=== PATIENT | male | born 1995 | race Two or more races ===

== ENCOUNTER 2021-12-03 17:29 | Emergency (ER) | payer OTHER ==
[~2021-12-03] VITALS: Ht 165.1 cm; Wt 79.4 kg
[2021-12-03] MEDS ORDERED: AMOX-CLAV 875-1 EACH PO (21:06)
== END 2021-12-03 21:26 | disposition home or self-care (01) ==
LOC: ER 17:29
DX: J03.90 Acute tonsillitis, unspecified (principal); Z20.822 Contact with and (suspected) exposure to COVID-19